=== PATIENT | female | born 1950 | race Caucasian/White ===

== ENCOUNTER 2018-02-02 06:11 | Day surgery (SDC) | payer OTHER ==
[2018-01-28 12:59] VITALS: BMI 27.8
[~2018-02-02 06:11] MED LIST: BUPIVACAINE HCL/PF (5 MG/ML) 30 ML VIAL IJ ONE
[2018-02-02] MEDS ORDERED: BUPIVACAINE HCL/PF 0.5% (5MG/ML) 10 ML VIAL ONE (07:18)
[2018-02-02] MEDS ORDERED: LIDOCAINE HCL 2% (20ML MULTI-DOSE VIAL) NR ONE (07:20)
[2018-02-02] MEDS ORDERED: LIDOCAINE HCL/PF 2% SDV 5ML VIAL ONE (07:49)
[2018-02-02] MEDS ORDERED: MIDAZOLAM HCL 2 MG/2 ML SINGLE DOSE VIAL ONE (07:49)
[2018-02-02] MEDS ORDERED: PROPOFOL 20 ML ONE ×2 (07:49→08:05)
[2018-02-02] MEDS ORDERED: CLINDAMYCIN 600 MG PREMIX BAG IVPB ONE (08:10)
--- NOTE | 2018-02-02 08:11 | HP ---
Satellite [facility] - Chief Complaint Chief Complaint: left arm pain, numbness History of Present Illness: left cubital tunnel syndrome History Source: Patient Limitations to Obtaining History: No Limitations - Past Medical History Allergies/Adverse Reactions: Allergies Allergy/AdvReac Type Severity Reaction Status Date / Time Penicillins Allergy Unknown "rash" Verified 02/02/18 06:48 - Current Medications Current Medications: Home Medications Medication Instructions Recorded Atorvastatin Ca [Lipitor] 5 mg PO HS 01/28/18 Cholecalciferol (Vitamin D3) 1,000 unit PO DAILY 01/28/18 [Vitamin D3] Clonazepam 0.5 mg PO BID 01/28/18 Sertraline HCl 200 mg PO DAILY 01/28/18 Satellite Physical Exam - Physical Examination Vital Signs: Vital Signs Period Temp Pulse Resp BP Sys/Antoine Pulse Ox Last 24 Hr 98.0 F 58 20 98/70 95 General Appearance: Well Nourished ENT: Clear Lung: Clear to auscultation Heart: Regular rate & rhythm Breasts: Soft Abdomen: Soft Extremities: No edema Satellite Impression/Plan - Impression/Plan Impression: left cubital tunnel syndrome Operative Procedure: left subcutaneous ulnar nerve transposition Date to be Performed: 02/02/18
--- NOTE | 2018-02-02 09:23 | OP ---
Operative Note - Note: Operative Date: 02/02/18 Pre-Operative Diagnosis: left cubital tunnel syndrome Operation: left elbow subcutaneous ulnar nerve transposition Post-Operative Diagnosis: Same as Pre-op Surgeon: Jomar Moran Anesthesiologist/STONE CHIMNEY MASON: Dion Vital Anesthesia: Local, MAC Estimated Blood Loss (mls): 0 Drains, Volume Out (mls): 0 Blood Volume Replaced (mls): 0 Fluid Volume Replaced (mls): 500 Operative Report Dictated: Yes
[2018-02-02] MEDS ORDERED: oxyCODONE HCL 5 MG TABLET PO PRN (09:31)
[2018-02-02] MEDS ORDERED: ONDANSETRON 4 MG/2 ML VIAL IVPUSH PRN (09:31)
[2018-02-02] MEDS ORDERED: PROMETHAZINE HCL 25 MG/1 ML VIAL IVPUSH PRN (09:31)
[2018-02-02] MEDS ORDERED: LACTATED RINGERS SOLUTION 1,000 ML IV SCH (09:45)
--- NOTE | 2018-02-02 09:52 | OP ---
DATE OF OPERATION: 02/02/2018 PREOPERATIVE DIAGNOSIS: Left elbow cubital tunnel syndrome. POSTOPERATIVE DIAGNOSIS: Left elbow cubital tunnel syndrome. PROCEDURE: Left elbow subcutaneous ulnar nerve transposition. SURGEON: Abbey Del Rosario MD BENDING FRAME OPERATOR: None. ANESTHESIA: MAC anesthesia with local injection of 10 mL of 0.5% Marcaine and 1% lidocaine mix. ANESTHESIOLOGIST: Dion Vital MD DRAINS: None. COMPLICATIONS: None. SPECIMEN: None. FLUID REPLACEMENT: 500 mL. BLOOD LOSS: None. BLOOD GIVEN: None. This patient is a 67-year-old female with a preoperative diagnosis of severe left ulnar nerve compression at the elbow/cubital tunnel syndrome. After understanding the potential risks, complications, alternatives and benefits of surgical versus nonsurgical treatment the patient elected to undergo this procedure. Patient was brought to the operating room. Peripheral IV placed. IV sedation given. Clindamycin 600 mg were given. MAC anesthesia was induced. Ample Webril was placed around the left arm. The left upper extremity was prepped and draped in sterile fashion. Esmarch bandage used to exsanguinate the upper extremity and the tourniquet was inflated to 250 mmHg. A curvilinear incision was marked out over the left medial epicondyle; 10 mL of 0.5% Marcaine and 1% lidocaine mix was injected in and around the surgical incision. The incision was made with a No. 15 scalpel blade. Subcutaneous hemostasis achieved with the bipolar cautery. Dissection done down through the adipose layer to the medial epicondyle and the origin of the flexor pronator mass. Weitlaner retractors were placed into the wound. A Sewell elevator was used to dissect free the deep adipose layer from the flexor pronator mass tendons. This revealed the cubital tunnel. The area was copiously irrigated and washed out. Next our dissection started distal to the medial epicondyle. I found the ulnar nerve, did a circumferential dissection and a Brock drain with irrigation for lubrication was passed around the ulnar nerve. I released it distally through the Tarango ligament and the 2 heads of the fascia between the 2 heads of the FCU. I then checked it with a Brockway elevator and my finger. There were no points of compression. I was able to transpose it anteriorly with no point of compression. Next we moved proximally using the Brock drain for retraction and identification, taking great care to try to preserve any crossing neurovascular structures and any branches from the ulnar nerve distal to the medial epicondyle. I released it proximally. There were no points of compression on the medial intramuscular septum. The area was copiously irrigated and washed out. I again checked the release proximally with my index finger. There were no points of compression. I was able to easily transpose the ulnar nerve to its new anterior location. I then tacked down the deep adipose layer to the medial epicondyle tendon origin tissue and periosteum with 2-0 Vicryl sutures. I checked multiple times while I was tacking this tissue down to make sure the ulnar nerve was not involved in the suture. I then moved the elbow. It looked quite good. It was able to easily and move. The area was irrigated and washed out. Closure was done with 2-0 Vicryl in the deep adipose tissue followed by 4-0 undyed Vicryl in the deep dermal layer. Final skin reapproximation was done with a running subcuticular 4-0 Biosyn stitch. The area was then washed and dried, covered with Steri-Strips, 4 x 4 gauze, Webril. The tourniquet was taken down after a total tourniquet time of 47 minutes. A 5-inch posterior Orthoglass splint was applied wrapped with Brittany and Coban. Patient tolerated the procedure quite well. There were no complications during the case and she was brought to the ambulatory recovery room in stable condition. ABBEY DEL ROSARIO M.D. [id number]
[2018-02-02 10:40] VITALS: TEMP 97.8
[2018-02-02 12:10] VITALS: BP 103/67; PULSE 77
== END 2018-02-02 11:45 | disposition home or self-care (01) ==
LOC: JASU-SURG 06:11
PROVIDERS: ATTEND Orthopaedic Surgery
PROC: 01S40ZZ Reposition Ulnar Nerve, Open Approach (ICD-10-PCS; principal; 2018-02-02 08:00)
DX: G56.22 Lesion of ulnar nerve, left upper limb (principal)

== ENCOUNTER 2020-04-13 16:13 | Emergency (ER) | payer OTHER ==
--- OUTSIDE RECORDS SUMMARY | 2020-04-13 16:22 | XMS ---
:1950 Author Organization [facility] Support Name Relationship Address Phone RE Unavailable Unavailable Unavailable NICO COREY FRIEND [address] [place] [address] Re-disclosure Warning The records that you are about to access may contain information from federally- assisted alcohol or drug abuse programs. If such information is present, then the following federally mandated warning applies: This information has been disclosed to you from records protected by federal confidentiality rules (42 CFR part 2). The federal rules prohibit you from making any further disclosure of this information unless further disclosure is expressly permitted by the written consent of the person to whom it pertains or as otherwise permitted by 42 CFR part 2. A general authorization for the release of medical or other information is NOT sufficient for this purpose. The Federal rules restrict any use of the information to criminally investigate or prosecute any alcohol or drug abuse patient.The records that you are about to access may contain highly sensitive health information, the redisclosure of which is protected by Article 27-F of the [facility] Public Health law. If you continue you may haveaccess to information: Regarding HIV / AIDS; Provided by facilities licensed or operated by the [facility] Office of Mental Health; or Provided by the [facility] Office for People With Developmental Disabilities. If such information is present, then the following [facility] mandated warning applies: This information has been disclosed to you from confidential records which are protected by state law. State law prohibits you from making any further disclosure of this information without the specific written consent of the person to whom it pertains, or as otherwise permitted by law. Any unauthorized further disclosure in violation of state law may result in a fine or usp sentence or both. A general authorization for the release of medical or other information is NOT sufficient authorization for further disclosure. Insurance Providers Payer name Policy type Policy ID Covered Covered alliance party's Policy P belkys / Coverage alliance party ID relationship to [employer] Inf ormation type bullard [employer] [id number] SP [id number] 01 HEALTHCARE PPO 1 MEDICARE [id number] SP [id number] A Results ID Date Data Source [id number] 02/03/2020 06:16:00 PM EDT [facility] Name Value Range Interpretation Code Description Data Thalia rce(s) Supporting Document(s ) SARS-COV-2 [facility] QL SHO+PROBE This lab was ordered by JENNIFER HARRISON and reported by BRAD MORENO. Procedure
[2020-04-13 16:33] VITALS: BP 106/63; PULSE 67; TEMP 99.3; BMI 24.5
--- NOTE | 2020-04-13 16:59 | PDOC ---
History of Present Illness - General Chief Complaint: Edema Stated Complaint: right lower leg and foot swelling Time Seen by Provider: 04/13/20 16:21 - History of Present Illness Initial Comments: 04/13/20 16:55 69 F with h/o HLD presents to ED with 1 month of R foot swelling. Pt states that she first noticed what she thought was a bug bite on her R foot 1 month ago. Her foot became very swollen and painful. Pt's PMD prescribed a course of keflex, which pt states helped. The swelling improved significantly, and pt now only endorses mild swelling to the foot with itching. Denies F/C. Pt denies any falls or injuries. Denies any immobilization or recent travel. Past History - Medical History Allergies/Adverse Reactions: Allergies Allergy/AdvReac Type Severity Reaction Status Date / Time Penicillins Allergy Unknown "rash" Verified 04/13/20 16:16 Home Medications: Ambulatory Orders Atorvastatin Ca [Lipitor] 5 mg PO HS 01/28/18 Cholecalciferol (Vitamin D3) [Vitamin D3] 1,000 unit PO DAILY 01/28/18 Clonazepam 0.5 mg PO BID 01/28/18 Sertraline HCl 200 mg PO DAILY 01/28/18 Anemia: No Asthma: No Cancer: Yes (ear skin cancer) Cardiac Disorders: No CVA: No COPD: No CHF: No Dementia: No Diabetes: No GI Disorders: No Disorders: No HTN: No Hypercholesterolemia: Yes Liver Disease: No Seizures: No Thyroid Disease: No - Surgical History Abdominal Surgery: No Appendectomy: No Cardiac Surgery: No Cholecystectomy: No Lung Surgery: No Neurologic Surgery: No Orthopedic Surgery: Yes - Immunization History Immunization Up to Date: Yes - Psycho-Social/Smoking History Smoking History: Never smoked Have you smoked in the past 12 months: No Number of Cigarettes Smoked Daily: 20 Information on smoking cessation initiated: No 'Breaking Loose' booklet given: 01/28/18 - Substance Abuse Hx (Audit-C & DAST Scrn) How often the patient has a drink containing alcohol: Never Score: In Men: 4 or > Positive; In Women: 3 or > Positive: 0 Screen Result (Pos requires Nsg. Audit-10AR): Negative In the last yr the pt used illegal drug/Rx for NonMed reason: No Score: Yes response is considered Positive: 0 Screen Result (Positive result requires Nsg. DAST-10): Negative Review of Systems - Review of Systems Comments:: 04/13/20 16:57 "GENERAL/CONSTITUTIONAL: No fever or chills. No weakness. HEAD, EYES, EARS, NOSE AND THROAT: No change in vision. No ear pain or discharge. No sore throat. CARDIOVASCULAR: No chest pain, no shortness of breath, no loss of consciousness RESPIRATORY: No cough, wheezing, or hemoptysis. GASTROINTESTINAL: No nausea, vomiting, diarrhea or constipation. GENITOURINARY: No dysuria, frequency, or change in urination. MUSCULOSKELETAL: + R foot swelling SKIN: No rash NEUROLOGIC: No vertigo, no change in strength/sensation. ENDOCRINE: No increased thirst. No abnormal weight change. HEMATOLOGIC/LYMPHATIC: No anemia, easy bleeding, or history of blood clots. ALLERGIC/IMMUNOLOGIC: No hives or skin allergy. *Physical Exam - Vital Signs Last Vital Signs Temp Pulse Resp BP Pulse Ox 99.3 F 67 18 106/63 96 04/13/20 16:16 04/13/20 16:16 04/13/20 16:16 04/13/20 16:16 04/13/20 16:16 - Physical Exam 04/13/20 16:57 "GENERAL: Awake, alert, and fully oriented, in no acute distress. HEAD: No signs of trauma EYES: PERRLA, EOMI, sclera anicteric, conjunctiva clear ENT: Auricles normal inspection, hearing grossly normal, nares patent, oropharynx clear without exudates. Moist mucosa NECK: Nontender, no stepoffs, Normal ROM, supple, no lymphadenopathy, JVD, or masses LUNGS: Breath sounds equal, clear to auscultation bilaterally. No wheezes, and no crackles HEART: Regular rate and rhythm, normal S1 and S2, no murmurs, rubs or gallops ABDOMEN: Soft, nontender, normoactive bowel sounds. No guarding, no rebound. No masses EXTREMITIES: + R foot with edema extending to mid calf, no tenderness, no erythema NEUROLOGICAL: Cranial nerves II through XII intact. 5/5 strength and sensation in all extremities, Normal speech, normal gait, normal cerebellar function SKIN: Warm, Dry, normal turgor, no rashes or lesions noted. ED Treatment Course - RADIOLOGY Radiology Studies Ordered: Category Date Time Status FOOT-RIGHT [RAD] Stat Radiology 04/13/20 16:43 Ordered DUPLEX VASCUL US-1 LEG [US] Stat Ultrasound 04/13/20 16:43 Ordered Medical Decision Making - Medical Decision Making 04/13/20 16:58 69 F with unilateral foot swelling. No evidence of traumatic injury. No erythema or other signs of infectious process. - XR R foot - RLE doppler Discharge - Discharge Information Problems reviewed: Yes Clinical Impression/Diagnosis: Swelling of right foot, Itchy skin, Foot pain Condition: Stable - Follow up/Referral - Patient Discharge Instructions Patient Printed Discharge Instructions: DI for Foot Pain Additional Instructions: Follow up with your primary doctor within 1 week for further evaluation of your foot swelling. If you experience worsening swelling, pain, redness, or any other concerning symptoms, return to the ER immediately. - Post Discharge Activity
--- NOTE | 2020-04-13 20:04 | PDOC ---
*Physical Exam - Vital Signs Last Vital Signs Temp Pulse Resp BP Pulse Ox 99.3 F 67 18 106/63 96 04/13/20 16:16 04/13/20 16:16 04/13/20 16:16 04/13/20 16:16 04/13/20 16:16 ED Progress Note - Progress Note Progress Note: Care of this patient received from Preliminary interpretation of the right lower extremity Doppler duplex ultrasound by Imaging supervisor [employer]: No evidence of DVT Results discussed with the patient who will follow-up with her general doctor Patient requested that a COVID-19 nasal swab antigen test be performed: This was sent. Discharge - Discharge Information Problems reviewed: Yes Clinical Impression/Diagnosis: Swelling of right foot, Itchy skin, Foot pain Condition: Stable Disposition: HOME - Follow up/Referral - Patient Discharge Instructions Patient Printed Discharge Instructions: DI for Foot Pain Additional Instructions: Follow up with your primary doctor within 1 week for further evaluation of your foot swelling. If you experience worsening swelling, pain, redness, or any other concerning symptoms, return to the ER immediately. - Post Discharge Activity
== END 2020-04-13 20:11 | disposition home or self-care (01) ==
LOC: FER 16:13
DX: R22.41 Localized swelling, mass and lump, right lower limb (principal); L29.9 Pruritus, unspecified; M79.673 Pain in unspecified foot
CPT/HCPCS: 73630-TC-RT-FY; 93971-TC; 99284-25; C9803; U0003